=== PATIENT | female | born 1975 | race Caucasian/White ===

== ENCOUNTER → 2024-04-07 15:15 | Outpatient (REF) | payer BC, SELFPAY | LOC: HWWDC 15:15 | PROVIDERS: ATTENDING PHYSICIAN Family Medicine | DX: Z12.31 Encounter for screening mammogram for malignant neoplasm of breast (principal) | CPT/HCPCS: 77063; 77067 ==

== ENCOUNTER → 2025-04-05 08:37 | Outpatient (REF) | payer BC, SELFPAY | LOC: WDC 08:37 | PROVIDERS: ATTENDING PHYSICIAN Obstetrics & Gynecology; FAMILY PHYSICIAN Family Medicine | DX: R92.8 Other abnormal and inconclusive findings on diagnostic imaging of breast (principal) | CPT/HCPCS: 77065 ==

== ENCOUNTER → 2025-04-12 06:39 | Outpatient (REF) | payer BC, SELFPAY ==
--- NOTE | 2025-04-12 08:48 | OID.BR.INTR ---
TEJAS[facility] Breast Navigator - Initial
- -
Date of Contact: 04/12/25
Met with patient. Patient given written information on navigator service available at [facility]. Will follow up as needed per protocol.
== END ==
LOC: WDC 06:39
PROVIDERS: ATTENDING PHYSICIAN Obstetrics & Gynecology
DX: R92.1 Mammographic calcification found on diagnostic imaging of breast (principal)
CPT/HCPCS: 19081; 76098; 88305; A4648